=== PATIENT | female | born 1955 | race Caucasian/White ===

== ENCOUNTER 2023-04-15 20:24 | Emergency (ER) | payer MEDICARE, SELFPAY ==
[2023-04-15 20:51] VITALS: BP 179/78; PULSE 65; RESP 16; TEMP 36.6; O2SAT 99; BMI 24.9
--- NOTE | 2023-04-15 21:07 | CRLHL7_ITS ---
For Patients: As a result of the Cures Act, medical imaging exams and procedure reports are released immediately into your electronic medical record. You may view this report before your referring provider. If you have questions, please contact your health care provider. INDICATION: Hit on left-side of head with baseball. COMPARISON: None. TECHNIQUE: Noncontrast CT head. FINDINGS: Focal scalp swelling and hematoma adjacent to the left frontal parietal calvaria. No underlying fracture. Normal brain parenchymal morphology. No acute intracranial hemorrhage, acute infarct, focal edema, mass effect, or fracture. No midline shift. No abnormal ventricular dilatation. Basilar cisterns are patent. Normal skull base. Visualized paranasal sinuses and mastoid air cells are clear. IMPRESSION: 1. No acute intracranial abnormality. 2. Focal scalp swelling and hematoma adjacent to left frontal parietal calvaria secondary to reported trauma. No underlying fractures Please note that all CT scans at this facility use dose modulation, iterative reconstruction, and/or weight-based dosing when appropriate to reduce radiation dose to as low as reasonably achievable. Dictated by Andreas Jacobs MD @ 04/15/2023 9:34:51 PM (Electronically Signed)
--- NOTE | 2023-04-15 21:08 | ED.GENADULT ---
HPI - General Adult General Time Seen by Provider: 21:08 Date Seen: 04/15/23 Chief complaint: Laceration/Wound Stated complaint: laceration Hit in back of head with baseball Time Seen by Provider: 04/15/23 20:54 Source: patient, family and old records reviewed Mode of arrival: ambulatory Limitations: no limitations History of Present Illness HPI narrative: 67-year-old female who comes in today with head injury. She was hit in the head with a baseball. No loss of consciousness. Did have some bleeding although that has improved. Not on blood thinners. No neck pain or other injuries. Related Data Home Medications Medication Instructions Recorded Confirmed No Known Home Medications 04/15/23 04/15/23 Allergies Allergy/AdvReac Type Severity Reaction Status Date / Time codeine Allergy Unknown Verified 04/15/23 20:54 Sulfa (Sulfonamide Allergy Unknown Verified 04/15/23 20:54 Antibiotics) Exam Narrative: Exam Narrative: General: well nourished , NAD Head: 8 mm curvilinear laceration of the left occipital parietal area, no skull deformity or bony step-off ENT: External ears and external nose are normal Eyes: Conjunctiva clear, pupils are equal reactive, external ocular motions are intact Neck: Full spontaneous range of motion of the neck Lungs: No respiratory distress Musculoskeletal: No tenderness or deformity Neurologic: No gross focal neurologic deficits Skin: No rashes Psych: Mood and affect are appropriate Const: Vital Signs, click to edit/add: Vital Signs - 24 hr 04/15/23 20:51 Temperature 97.8 F Pulse Rate [Pulse Oximeter] 65 Respiratory Rate 16 Blood Pressure [Ri ght Upper Arm] 179/78 H Pulse Oximetry 99 Oxygen Delivery Me thod Room Air Course Course Hospital Course: Patient seen and examined, prior records reviewed. Patient presents with a head injury after being hit in the head with a baseball. CT scan is ordered. On exam there is an 8 mm curvilinear laceration, full thickness. Risks and benefits discussed, verbal consent was obtained Lidocaine 1% with epinephrine 2 mL total injected around the edges of the wound. Wound was explored, no foreign body in bleeding was controlled. Two 5 0 Vicryl simple interrupted sutures were placed with good hemostasis. Patient tolerated this well. Head CT is pending. Reevaluation(s) Time of Reevaluation #1: 21:19 Reevaluation #1: Care discussed with oncoming provider. If head CT is negative, patient can be discharged with no further interventions and we discussed this. Vital Signs Vital signs: Initial Vital Signs Temperature 97.8 F 04/15/23 20:51 Temperature Source Temporal Artery Scan 04/15/23 20:51 Pulse Rate 65 04/15/23 20:51 Pulse Rhythm Regular 04/15/23 20:51 Respiratory Rate 16 04/15/23 20:51 Blood Pressure 179/78 H 04/15/23 20:51 Blood Pressure Mean 111 H 04/15/23 20:51 Blood Pressure Position Sitting 04/15/23 20:51 Pulse Oximetry 99 04/15/23 20:51 Oxygen Delivery Method Room Air 04/15/23 20:51 Vital Signs Temperature 97.8 F 04/15/23 20:51 Pulse Rate 65 04/15/23 20:51 Respiratory Rate 16 04/15/23 20:51 Blood Pressure 179/78 H 04/15/23 20:51 Pulse Oximetry 99 04/15/23 20:51 Oxygen Delivery Method Room Air 04/15/23 20:51 Temperature 97.8 F 04/15/23 20:51 Pulse Rate 65 04/15/23 20:51 Respiratory Rate 16 04/15/23 20:51 Blood Pressure 179/78 H 04/15/23 20:51 Pulse Oximetry 99 04/15/23 20:51 Oxygen Delivery Method Room Air 04/15/23 20:51 Discharge Plan Discharge Clinical Impression: Laceration of scalp Patient Disposition: Home, Self-Care Condition: Improved Instructions: Care For Your Absorbable Stitches (ED) Additional Instructions: You may wash your hair gently after 24 hours. Do not submerge for 48 hours. Activity Level: No Restrictions Prescriptions: No Action No Known Home Medications Stand Alone Forms: MyHealth Info Instructions
[2023-04-15 21:39] VITALS: TEMP 36.6
[2023-04-15] MEDS: IBUPROFEN 200 MG TABLET 400 MG PO (21:39)
== END 2023-04-15 21:50 | disposition home or self-care (01) ==
LOC: ED 21:47
PROVIDERS: Emergency Provider Family Medicine
DX: S01.01XA Laceration without foreign body of scalp, initial encounter (principal); W21.03XA Struck by baseball, initial encounter
CPT/HCPCS: 12001; 70450; 99283; 99284; A9270